=== PATIENT | female | born 1990 | race Caucasian/White ===

== ENCOUNTER 2016-12-25 16:34 | Emergency (ER) | payer MEDICAID ==
[2016-12-25 16:35] VITALS: BMI 35.5
[2016-12-25 16:45] VITALS: TEMP 98.2
--- NOTE | 2016-12-25 16:58 | C.PDOC ---
History Of Present Illness 26F c/o atraumatic mid back pain for the last 2 weeks. she says the pain is worse with any movement at all including movement of her arms and also with breathing. she saw her pcp 1 week ago who rx ibuprofen which she says she has been taking for the last 2 days and it does help. she denies any other pmh. denies smoking. no meds, no ocp. Time Seen by Provider: 12/25/16 16:53 Chief Complaint (Nursing): Back Pain Past Medical History Vital Signs: Last Vital Signs Temp 98.2 F 12/25/16 16:42 Pulse 82 12/25/16 16:42 Resp 19 12/25/16 16:42 BP 139/100 H 12/25/16 16:45 Pulse Ox 99 12/25/16 17:12 - Medical History PMH: Gall Bladder Disease, HTN, Pancreatitis Surgical History: Cholecystectomy Family History: States: Other Other Family History: nc - Social History Hx Tobacco Use: No Hx Alcohol Use: No Hx Substance Use: No - Immunization History Hx Tetanus Toxoid Vaccination: Yes Hx Influenza Vaccination: Yes Hx Pneumococcal Vaccination: Yes Review Of Systems Constitutional: Negative for: Fever, Chills Cardiovascular: Negative for: Chest Pain, Edema Respiratory: Negative for: Cough, Shortness of Breath Gastrointestinal: Negative for: Nausea, Vomiting, Abdominal Pain Genitourinary: Negative for: Dysuria, Frequency, Hematuria Neurological: Negative for: Weakness, Numbness Physical Exam - Physical Exam Appears: Well, Non-toxic, No Acute Distress Skin: Warm, Dry Eye(s): bilateral: PERRL Cardiovascular: Rhythm Regular Respiratory: Normal Breath Sounds, No Decreased Breath Sounds, No Accessory Muscle Use Back: No Vertebral Tenderness, Muscle Spasm, Paraspinal Tenderness (right mid thoracic ttp- pain reproduced with palpation) Neurological/Psych: Oriented x3, Other (no focal deficits) Gait: Steady ED Course And Treatment O2 Sat by Pulse Oximetry: 99 Disposition - Disposition Disposition: HOME/ ROUTINE Disposition Time: 17:39 Condition: GOOD Additional Instructions: Please follow up with your doctor in 1 week. Take medication as directed. You can also take tylenol if needed. Return to the ER for any worsening symptoms or for any other concerns. Prescriptions: Cyclobenzaprine [Cyclobenzaprine HCl] 10 mg PO TID PRN #20 tab PRN Reason: Pain, Severe (8-10) Naproxen [Naprosyn] 500 mg PO Q12H PRN #10 tablet PRN Reason: Pain, Moderate (4-7) Instructions: Back Pain (ED), Back Exercises (ED) Forms: General Discharge Instructions - Clinical Impression Clinical Impression: Thoracic back pain
[2016-12-25 17:55] VITALS: BP 128/72; PULSE 72; RESP 18; O2SAT 98
== END 2016-12-25 17:56 | disposition home or self-care (01) ==
LOC: C.ER 16:34
DX: M54.6 Pain in thoracic spine (principal)
CPT/HCPCS: 96372; 99283; J1885